=== PATIENT | male | born 1985 | race African-American/Black ===

== ENCOUNTER 2018-06-04 06:20 | Emergency (ER) | payer SELFPAY ==
[~2018-06-04] VITALS: Ht 180.3 cm; Wt 81.6 kg
[2018-06-04 06:25] VITALS: BP 129/92
[2018-06-04] MEDS ORDERED: IBUPROFEN 400 MG TABLET ONE (07:11)
[2018-06-04] MEDS ORDERED: IBUPROFEN 400 MG TABLET PO ONE (07:30)
== END 2018-06-04 07:25 | disposition home or self-care (01) ==
LOC: ER 06:29
DX: S93.491A Sprain of other ligament of right ankle, initial encounter (principal); F20.9 Schizophrenia, unspecified; F31.9 Bipolar disorder, unspecified; Z59.0 Homelessness; W01.0XXA Fall on same level from slipping, tripping and stumbling without subsequent striking against object, initial encounter; Y93.89 Activity, other specified; Y92.89 Other specified places as the place of occurrence of the external cause; Y99.8 Other external cause status
CPT/HCPCS: 99283; A4606; Z7610

== ENCOUNTER 2022-04-27 19:36 | Emergency (ER) | payer MEDICAID ==
[~2022-04-27] VITALS: Ht 180.3 cm; Wt 79.4 kg
[2022-04-27 19:42] VITALS: BP 149/84
== END 2022-04-27 23:06 | disposition home or self-care (01) ==
LOC: ER 19:37
DX: B34.9 Viral infection, unspecified (principal); Z20.822 Contact with and (suspected) exposure to COVID-19; F20.9 Schizophrenia, unspecified; F31.9 Bipolar disorder, unspecified
CPT/HCPCS: 99283; 87426; 87804; C9803